=== PATIENT | male | born 1980 | race Caucasian/White ===

== ENCOUNTER 2024-03-08 06:19 | Day surgery (SDC) | payer OTHER, SELFPAY | END 2024-03-08 14:52 | disposition home or self-care (01) | LOC: GI 06:19 | PROVIDERS: ATTENDING PHYSICIAN Internal Medicine Gastroenterology | DX: Z12.11 Encounter for screening for malignant neoplasm of colon (principal); K64.8 Other hemorrhoids; R19.4 Change in bowel habit; Z83.719 Family history of colon polyps, unspecified | CPT/HCPCS: 45380; 88305 ==

== ENCOUNTER → 2024-06-17 09:24 | Outpatient (REF) | payer OTHER, SELFPAY | LOC: RCS 09:24 | PROVIDERS: ATTENDING PHYSICIAN Family Medicine | DX: R07.89 Other chest pain (principal) | CPT/HCPCS: 93005 ==

== ENCOUNTER 2025-02-21 19:33 | Emergency (ER) | payer OTHER, SELFPAY ==
[2025-02-21 19:42] VITALS: BP 131/94
[2025-02-21 22:46] LABS: Hematocrit 43.9 % (39.0-52.0); Hemoglobin 15.8 g/dL (13.0-18.0); Mean Corp Hgb Conc. 36.0 g/dL (33.0-37.0); Mean Corpuscular Volume 88.7 fL (80.0-94.0); Nucleated Red Blood Cells % 0 % (-); Platelet Count 167 10^3/uL (130-400); Red Cell Dist. Width 12.5 % (11.5-14.5)
[2025-02-21 22:48] LABS: Urine Character Clear (Clear)
[2025-02-21 22:52] VITALS: BP 135/84
[2025-02-21 22:57] LABS: Urine Red Blood Cell 0-2 /HPF (0-2); Urine Squamous Cell 0-2 /LPF (Few); Urine White Cell 0-2 /HPF (0-5)
[2025-02-21 23:00] VITALS: BP 134/84
[2025-02-21 23:08] LABS: ALT (SGPT) 27 U/L (0-50); AST (SGOT) 30 U/L (17-59); Albumin 4.6 g/dl (3.5-5.0); Alkaline Phosphatase 37 U/L (38-126); Blood Urea Nitrogen 18 mg/dl (9-20); Calcium 9.0 mg/dl (8.4-10.2); Carbon Dioxide 29 mmol/L (22-30); Chloride 100 mmol/L (98-107); Glucose 99 mg/dl (70-99); Lipase 75 U/L (23-300); Potassium 3.8 mmol/L (3.5-5.1); Sodium 135 mmol/L (135-145); Total Protein 7.4 g/dl (6.3-8.2); eGFR > 60.00
[2025-02-21 23:22] LABS: Troponin I < 0.012 ng/ml
[2025-02-21] MEDS: PROTONIX IV 40 MG IV (23:23)
[2025-02-21] MEDS: CARAFATE SUSPENSION 1 GM PO (23:23)
[2025-02-22 00:20] VITALS: BP 121/73
[2025-02-22 01:00] VITALS: BP 119/74
--- NOTE | 2025-02-22 01:46 | ED.GENMED ---
History of Present Illness
General
Chief Complaint: Abdominal Pain
Source: patient
Exam Limitations: none
Time Seen by Provider: 02/21/25 22:51
History of Present Illness
History of Present Illness:
Note:
CHIEF COMPLAINT(S)
Upper abdominal pain
HISTORY OF PRESENT ILLNESS
The patient is a 44-year-old male presenting with upper abdominal pain, which started yesterday. He reports experiencing this type of pain in the past and was previously treated in the emergency department with a 'GI cocktail,' consisting of
medications such as a numbing agent similar to novocaine and antacids, which resulted in symptom relief. He had a follow-up endoscopy during that episode, which showed no significant findings, and there was no indication of gallbladder involvement.
The patient describes the pain as worsening today despite taking geef-oga-egcblle antacids like Pepto-Bismol. He denies nausea or vomiting but notes episodes where he feels on the verge of nausea.
The pain initially manifested as a background discomfort yesterday and then progressively intensified. He mentions consuming alcohol but denies excessive intake over the weekend, noting it was typical of his usual weekend consumption. There is
epigastric tenderness on examination, but no signs of systemic infection or significant abdominal distension were observed.
PAST MEDICAL HISTORY
Previous episodes of similar abdominal pain, treated with a 'GI cocktail.'
EXTERNAL RECORDS REVIEWED
Endoscopy reports from prior episodes showing no significant findings.
SOCIAL HISTORY
The patient admits to alcohol consumption, typically during weekends, but no indication of excessive use was noted recently.
REVIEW OF SYSTEMS
- Gastrointestinal: Reports upper abdominal pain increasing in intensity, with no current vomiting but occasional nausea.
- Musculoskeletal: No tenderness elicited in right lateral or lower abdominal regions; tenderness is localized in the epigastric area.
- Neurological: No unusual signs noted.
PHYSICAL EXAM
General: Alert, no acute distress.
Skin: Warm, dry.
Head: Normocephalic, atraumatic.
Neck: Supple, trachea midline.
Eye Ears, Nose, Mouth and Throat: Oral mucosa moist.
Cardiovascular: Normal peripheral perfusion, no edema.
Respiratory: Respirations are non-labored.
Gastrointestinal: Abdomen nondistended; moderate epigastric tenderness noted; no rebound tenderness, guarding, or signs of peritonitis.
Back: Normal range of motion, Normal alignment.
Musculoskeletal: Normal ROM, normal strength.
Neurological: Alert and oriented to person, place, time, and situation, No focal neurological deficit observed.
Psychiatric: Cooperative, appropriate mood & affect.
PROBLEM LIST
Acute problem:
- Upper abdominal pain, likely gastritis or ulcer related.
PLAN
- Administer oral Carafate (sucralfate) to coat the stomach lining and assess for symptom relief. If effective, consider prescribing for outpatient use, three times a day before meals and at bedtime for one week.
- Consider imaging to rule out other causes such as gallbladder or pancreatic issues if symptoms persist or worsen.
- The patients electrocardiogram (EKG) is reviewed and appears normal.
- Monitor patient response to treatment in the emergency department and adjust management based on response.
- Educate the patient on avoiding alcohol and potential dietary triggers, and discuss follow-up for further evaluation if symptoms persist or escalate.
DIFFERENTIAL DIAGNOSIS
The Differential Diagnosis includes, in no particular order and is not limited to:
1. Gastritis
2. Peptic Ulcer Disease
3. Acute Pancreatitis
4. Gallbladder Disease (Cholecystitis)
5. Gastroesophageal Reflux Disease (GERD)
6. Alcohol-induced gastritis
7. Functional Dyspepsia
8. Duodenitis
9. Small bowel obstruction
10. Hepatitis
Disposition:
SUMMARY OF ENCOUNTER
The patient, a 31-year-old male, presented to the emergency department with abdominal pain. Upon evaluation, laboratory tests including CBC, CMP, lipase, and urinalysis were conducted and found to be normal. An abdominal CT scan showed common free
fluid but no signs of a distended small bowel, suggesting potential enteritis. The patient was reassessed and reported feeling much better after treatment.
PLAN
The patient was advised to follow a clear liquid diet for the next 24 hours, with a slow progression to regular food as tolerated. Additionally, he was advised to take a proton pump inhibitor (PPI) daily. An outpatient endoscopy is recommended in
the near future for further evaluation. The patient agrees with this plan.
INDEPENDENT REVIEW OF LABS AND INTERPRETATION OF TESTS
- My independent review of CBC is normal.
- My independent review of CMP is normal.
- My independent review of lipase is normal.
- My independent review of urinalysis is normal.
- My independent interpretation of the abdominal CT shows common free fluid without distended small bowel, suggesting enteritis.
PATIENT EDUCATION AND COUNSELING
I counseled the patient on following a clear liquid diet for the next 24 hours, gradually transitioning to solid foods as symptoms allow. I also discussed the importance of starting a daily proton pump inhibitor and the need for a follow-up
endoscopy.
FOLLOW-UP INSTRUCTIONS
Please call the office immediately to schedule a follow-up visit for an endoscopy.
MEDICATION RECONCILIATION
- Prescribed daily proton pump inhibitor (PPI) for outpatient use.
MEDICAL DECISION MAKING
- Number and Complexity of Problems Addressed: Acute problem of abdominal pain likely due to enteritis.
- Data:
Category 1:
- My independent interpretation of the abdominal CT indicating potential enteritis.
Category 2:
- Non-emergency department records reviewed.
- Risk:
- Prescription medication was prescribed for ongoing management.
DIAGNOSIS
- Enteritis (ICD-10: K52.9)
Past History
Past History
ED Past Medical History: None and Other
ED Past Surgical History: Tonsilectomy
Social History
Tobacco: Non-smoker
Alcohol: Occasional
Personal:
Living: with family
Employment: Employed
Family History
Family History: Negative CAD or Sudden
Phy Exam
Physical Exam
Physical Exam:
.
Course
Orders/Labs/Results
Orders:
Orders
12/29/25 20:26
IV Insert/Care/Rem.- Treatment PRN
02/21/25 22:22
ECG [Electrocardiogram (*1)] Urgent
Reason for Study: Abdominal Pain
Cardiology Consult: Unknown
EKG- Treatment ONCE
02/21/25 22:36
Complete Blood Count/With Diff Urgent
Comprehensive Metabolic Panel Urgent
Lipase Urgent
Troponin I Urgent
02/21/25 22:37
Urinalysis Reflex To Culture Urgent
Date Specimen was Collected: 02/21/25
Time Specimen was Collected: 20:26
Urine Microscopic Reflex Cult Urgent
02/21/25 23:11
Pantoprazole [Protonix IV] 40 mg IV NOW STA
Sucralfate Suspension [Carafate Suspension] 1 gm PO NOW STA
02/21/25 23:12
CT Abd/pelvis W Iv Cont Urgent
Comment:
Reason For Exam: upper/mid abd pain
02/22/25 01:50
Ketorolac [Toradol] 15 mg IV NOW STA
Mag Hydrox/Al Hydrox/Simeth [Maalox] 30 ml Phenobarb/Hyoscy/Atropine/Scop [] 10 ml PO NOW
02/22/25 01:54
Mag Hydrox/Al Hydrox/Simeth [Maalox] 30 ml .ROUTE .STK-MED ONE
Phenobarb/Hyoscy/Atropine/Scop [] 10 ml .ROUTE .STK-MED ONE
Abnormal Lab Results
02/21/25 02/21/25
22:36 22:37
MCH 31.9 H pg
(27.0-31.0)
Absolute Lymphs (auto) 0.5 L 10^3/uL
(1.2-3.4)
Neutrophils % 86.7 H %
(42.2-75.2)
Lymphocytes % 7.8 L %
(20.5-51.1)
Alkaline Phosphatase 37 L U/L
(38-126)
Urine Ketones 1+ A
(Negative)
Urine Bacteria (Reflex) Few A
(Negative)
Urine Albumin (Reflex) 1+ A
(Neg - Trace)
02/21/25 22:36
02/21/25 22:36
Vital Signs
Initial and Last Documented VS:
Initial Vital Signs
Temp Pulse Resp BP Pulse Ox
98.3 F 95 18 131/94 97
02/21/25 19:42 02/21/25 19:42 02/21/25 19:42 02/21/25 19:42 02/21/25 19:42
Last Documented Vital Signs
Temp Pulse Resp BP Pulse Ox
98.3 F 81 14 123/77 96
02/21/25 19:42 02/22/25 02:00 02/22/25 02:00 02/22/25 02:00 02/22/25 02:00
*Pulse Oximetry
SaO2: 98
Oxygen Mode of Delivery: Room air
Patient hypoxic: no
*Critical Care Note
Total Time (30-74mins, 75-104mins- exclusive of procedures): Not Applicable
ED Attending Note
-
Portions of this chart may have been created with voice recognition software.� Occasional wrong word or��sound alike� substitutions may have occurred due to the inherent limitations of voice recognition software.
Discharge Plan
Departure
Patient Disposition: Home (Routine Discharge)
Date of Disposition: 02/22/25
Time of Disposition: 01:52
Patient with high blood pressure during this ER visit?: No
Discharge Problem:
Acute epigastric pain
Instructions: Clear Liquid Diet, Abdominal Pain
Prescriptions:
New
pantoprazole [Protonix] 40 mg tablet,delayed release (DR/EC)
40 mg PO DAILY Qty: 30 0RF
Rx Instructions:
Please take 30 minutes prior to eating or drinking anything in the morning.
sucralfate 100 mg/mL suspension
1 g PO Q6H Qty: 400 0RF
ondansetron HCl 4 mg tablet
4 mg PO Q8H PRN (Reason: nausea and vomiting) Qty: 14 0RF
No Action
pantoprazole 40 MG tablet,delayed release (DR/EC)
40 mg PO DAILY Qty: 30 0RF
tobramycin 0.3 % drops
2 drp ophthalmic (eye) QID 5 Days Qty: 5 0RF
Referrals:
Carmelita Connelly DO [Family Provider, Family Practice]
Activity Restrictions/Additional Instructions:
Please see your doctor in the next 1 week for follow-up and reevaluation. Stick to a clear liquid diet as discussed for the next 24 hours and slowly progress over the following 24 hours. Return immediately for intractable vomiting, worsening pain
or any other concerns. As you feel better, please have an outpatient endoscopy in the next 1 to 3 months.
Interventions
Interventions:
*General Assessment Last Done: 02/21/25 19:42
*Neglect/Abuse Screening Last Done: 02/21/25 19:42
*ED COVID-19 Vaccine History Last Done: 02/21/25 22:51
*ED Influenza Vaccine History Last Done: 02/21/25 22:51
[facility] Risk Assessment Tool Last Done: 02/21/25 22:51
*Risk Screen - Suicide (C-SSRS) Last Done: 02/21/25 19:42
*Nursing Disposition Last Done: 02/22/25 02:32
[facility] Assessment Last Done: 02/22/25 00:19
Discharge Date and Time
Discharge Date/Time: 02/22/25 02:32
Print Language: CHINESE
[2025-02-22 02:00] VITALS: BP 123/77
[2025-02-22] MEDS: TORADOL 15 MG IV (02:25)
[2025-02-22] MEDS: MAALOX 40 PO (02:25)
== END 2025-02-22 02:32 | disposition home or self-care (01) ==
LOC: EMR 19:33
PROVIDERS: Emergency Medicine; EMERGENCY PHYSICIAN Emergency Medicine; FAMILY PHYSICIAN Family Medicine
DX: R10.13 Epigastric pain (principal); K52.9 Noninfective gastroenteritis and colitis, unspecified
CPT/HCPCS: 99285; 96375; 96374; 74177; 80053; 81003; 81015; 83690; 84484; 85025; 93005; Q9967